=== PATIENT | male | born 2000 | race Caucasian/White ===

== ENCOUNTER 2023-01-16 07:53 | Emergency (ER) | payer OTHER ==
[~2023-01-16] VITALS: Ht 185.4 cm; Wt 88.5 kg
[2023-01-16] MEDS ORDERED: AMOX-CLAV 875-1 EAC1 PO (12:35)
== END 2023-01-16 13:13 | disposition home or self-care (01) ==
LOC: ER 07:53
DX: R53.81 Other malaise (principal); J02.9 Acute pharyngitis, unspecified; Z20.822 Contact with and (suspected) exposure to COVID-19